=== PATIENT | female | born 2000 | race Caucasian/White ===

== ENCOUNTER 2022-06-08 07:05 | Day surgery (SDC) | payer SELFPAY, OTHER ==
[2022-06-08] VITALS (7 sets, daily range): BP systolic 108–121; BP diastolic 68–90; PULSE 76–94; RESP 12–18; TEMP 36.1–36.8; O2SAT 97–100; BMI 25.4
[2022-06-08] MEDS: Lactated Ringers 1,000 ML 15 ML IV (07:41)
[2022-06-08 07:43] LABS: Internal QC Validated? YES +Cl - CLEAR BKGD; Pregnancy, Urine Negative Negative
--- NOTE | 2022-06-08 07:43 | PCM.HP.BLA ---
History and Physical Intake Vital Signs ? 06/03/2312:53 Height 5 ft 5 in Weight: 155 lb BMI 25.7 Intake Visit Reasons:?ED f/u from [place], large ovarian cyst Chief Complaint: ed f/u ovarian cyst Senior Network Administrator Required: No Is patient in pain?: Yes Pain scale (1-10): 8 Allergies No Known Allergies Allergy (Unverified 06/03/22 13:56) Medications ibuprofen 800 mg tablet 800 mg PO Q6H 06/03/22 [History Confirmed 06/03/22] Is last menstrual period known: Yes Last Menstrual Period: 05/25/22 Patient : No : No PFSH Family History?(Updated 06/03/22 @ 13:58 by Therese Wilcox) Father Hypertension Diabetes Arthritis Social History?(Updated 06/03/22 @ 14:00 by Therese Wilcox) adopted:? No household members:? family number of children:? 0 current occupational status:? 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 Never smoker alcohol intake:? never seatbelt use:? always do you feel safe at home:? Yes HPI ED f/u from [place], large ovarian cyst Details: PAMELA GARCIA is a 21 year old who presents for new onset pelvic acute pain intermittently since tuesday, seen in ER and has 9 cm ovarian cyst with blood flow.? she has been taking ibuprofen since and pain in improved but still prsent.? she denies any bleeding or abnormal discharge and isn't sexually active Female Reproductive History Last Menstrual Period: 05/25/22 Menopausal Symptoms: No night sweats ROS Const Constitutional: Denies fatigue, night sweats, weight gain or weight loss ENT ENT: Reports system reviewed and no additional complaints, except as documented Cardio Card: Denies chest pain Resp Resp: Denies cough or dyspnea GI GI: Reports as per HPI; Denies abdominal pain, constipation, nausea or vomiting : Denies nipple discharge, urinary frequency, urinary incontinence, urinary hesitancy, urinary urgency, vaginal discharge, vaginal dryness, vaginal odor or vaginal pruritus Musc Musc: Denies arthralgias, back pain or muscle weakness Skin Skin/Breast: Denies alopecia, change in hair, dry skin, breast mass, breast pain, breast skin changes or nipple discharge Neuro Neuro: Reports system reviewed and no additional complaints, except as documented Psych Psych: Reports system reviewed and no additional complaints, except as documented Endo Endo: Denies cold intolerance, excessive sweating, heat intolerance or polydipsia Severiano/Lymph Hematologic/Lymphatic: Denies easy bleeding, Denies easy bruising and Denies lymphadenopathy Exam Const General: cooperative, healthy appearing, comfortable, no acute distress and well developed Orientation: alert [facility] Head: normal to inspection and normocephalic Ears: hearing grossly normal bilaterally and external ears normal Nose: external nose normal and nares normal Face and sinus: normal facial exam Neck Neck: normal visual inspection and no lymphadenopathy Thyroid: thyroid normal Chest Chest palpation & inspection: normal inspection of the chest Resp Effort & Inspection: normal respiratory effort Cardio Rate: regular rate GI Inspection: normal to inspection and non-distended Palpation: soft and no hepatosplenomegaly Musc Other: gross motor intact no deficits, full bilateral strength Skin General: no rashes or lesions noted Neuro General: patient alert, patient awake, moves all extremities and no focal motor deficits Motor: muscle tone normal throughout Extrem General: normal to inspection and no pedal edema Psych Appearance: grossly normal Mental Status: mental status grossly normal Affect: normal affect Speech and Movement: speech and movement normal Coding Level of Care Code No Charge Diagnoses Ovarian cyst? N83.209 Assessment and Plan Assessment and Plan (1) Ovarian cyst: ?Status:?Acute ?Comment: plan laparoscopic ovarian cystectomy possible oophorectomy Plan After discussing the patient's diagnosis and treatment plan options, patient wishes to proceed with surgical management.? I have discussed with the patient the risks, benefits, and alternatives of the procedure which include but are not limited to risks of anesthesia, bleeding, infection, possible damage to bowel, bladder, or surrounding vasculature which could lead to additional surgery to evaluate any complications.? Patient agrees to procedure and wishes to proceed.? ACOG/uptodate references given for additional information regarding procedure.? UPDATE- I have seen the patient and performed any clinically relevant updates to the history and physical exam. Hannah Simmons MD
[2022-06-08 07:49] LABS: Hematocrit 39.4 % (37-47); Hemoglobin 12.8 g/dL (12.0-15.0); Mean Corp Hgb Conc 32.5 g/dL (32-36); Mean Corpuscular Hgb 29.2 pg (27.0-32.0); Mean Corpuscular Volume 89.7 fL (81-99); Platelet Count 304 K/mm3 (150-450); RBC Distribution Width CV 11.7 % (11.6-14.6); RBC Distribution Width SD 38.5 fl (35.1-43.9); Red Blood Count 4.39 M/mm3 (4.2-5.4); White Blood Count 7.1 K/mm3 (4.4-11.0)
--- NOTE | 2022-06-08 09:30 | OV_PTH ---
PATIENT: PAMELA GARCIA [place] [facility] [id number] AGE/SX: ROOM: RE06/08/[address]: Dr. Hannah Simmons MD : 2000 BED: DIS: 06/08/2022 SPEC #: [id number] RECD: 06/08/22 12:17 STATUS: MICHAEL RESky #: [id number] LINDA: 06/08/22 09:[address]: Hannah Simmons DEPT: SURGICAL PATHOLOGY RECD BY: Rossi Worthington ENTERED: 06/08/22 12:59 SP TYPE: OVARY OTHR DR: Dr. Chris Mederos, Tissues: Left ovary Procedures: Surgery Specimen Level IV HEADER OPERATION: Laparoscopic unilateral ovarian cystectomy, laparoscopic salpingo-oophorectomy PRE-OP DIAGNOSIS: Ovarian cyst TISSUE SUBMITTED: Left ovarian cyst and fallopian tube MICROSCOPIC DIAGNOSIS Left ovarian cyst and fallopian tube, salpingo-oophorectomy: Ovarian cyst wall with hemorrhagic infarction. Fallopian tube with hemorrhagic infarction. AM:leslie 06/09/2022 COMMENT Case has been reviewed in consultation with Dr. Mejia who concurs with the above diagnosis. ZAHRA:TONA MICROSCOPIC DESCRIPTION Slides are reviewed. GROSS DESCRIPTION Received in fixative is one container labeled with the patient's name and designated left ovarian cyst and fallopian tube. The specimen consists of a fallopian tube and cyst wall in multiple pieces. The fallopian tube is congested and hemorrhagic and measures 10.0 cm in length and up to 1.0 cm in diameter. The fimbrial end is identified. Sections of the fallopian tube reveal congested and hemorrhagic cut surfaces. Pieces of cyst wall measure in aggregate 10.0 x 10.0 x 1.0 cm. The cyst wall is congested and hemorrhagic. Field Court Researcher sections are submitted in four cassettes as follows: 1 & 2 ? fallopian tube, 3 & 4 ? ovarian cyst wall. / TONA:leslie 06/08/2022 TC:5 CPT: 14065
--- NOTE | 2022-06-08 09:46 | PCM.OPRPT ---
Problems Associated Problem List Diagnoses (1) Ovarian cyst: Report of Operation Date of Procedure: 06/08/22 Pre-Operative Diagnosis: see problem list Post-Operative Diagnosis: same Surgery/Procedure Performed:: laparoscopic ovarian cystectomy left salpingectomy Description of Surgical Findings:: left ovarian cyst torsion x 3 with infarcted tube Surgeon: Hannah Simmons natural gas inspector: Megha Rizvi Type of Anesthesia: General and Local Special Medications: none Specimen's removed: left tube and ovarian cyst Drains: none Estimated Blood Loss (mL): 50 Fluids Replaced: crystalloid Description of Procedure: Patient was taken in the operating room and was placed under general anesthesia was prepped and draped in normal sterile fashion in the dorsal lithotomy position. Bladder was drained of clear urine and SCDs were on preoperatively. Uterus was sounded and a uterine manipulator was placed after dilating. Attention was then paid to the abdominal portion of the procedure and the umbilicus was elevated with towel clamps and injected with Marcaine and after a 12 mm incision was made and the Veress needle was entered into the abdomen confirmed to be intra-abdominal with a low opening pressure of less than 5 mmHg. Abdomen was insufflated with CO2 gas and a 12 mm optical trocar was placed under direct visualization. A right and left lower quadrant 5 mm ports were placed under direct visualization. Uterus was well visualized and the left ovary was noted to be significantly enlarged and some of the bowel was stuck over it with adhesions. These adhesions were taken down and left ovary and tube visualized and noted to be torsed. The left ovary and tube were lifted up and untorsed which were noted to be rotated 3 times. There was complete infarction of the left fallopian tube noted but the left ovary was noted to have return of blood flow in the part most proximal to the pelvic sidewall. The left fallopian tube was first removed using the LigaSure to transect across the base of the tube to the level of the utero-ovarian ligament and the infundibulum portion of the tube. The ovary was then opened and cystectomy performed by transecting across most of the part of the ovary that had the cyst that appeared to be infarcted. The main part of the ovary was confirmed to have blood flow with some areas of bleeding noted which were cauterized. Whiteness was seen confirming blood flow coming back to part of the ovary and therefore part of the ovary was left in situ as per patient and family wishes. Right ovary and tube were noted to be within normal limits. The specimen was removed through the umbilical port site through a bag. The fascial incision was closed using the Aneesh Harmon and an 0 Vicryl. Liver and upper abdomen were visualized notably within normal limits and no other gross abnormalities were seen in the abdomen. All instruments removed from the abdomen after gas was desufflated. Port sites were closed with 3-0 Monocryl Steri's and op sites were applied. All instruments removed from the vagina and patient was awoken and taken recovery in stable condition. Grafts/Implants Used: none Complications none Admit VTE Documentation VTE Present on Admission: No VTE Mechan Device Prophylaxis: SCD's Procedures Urinary/Genital [id number]: [id number] Laproscopic BS/O
--- NOTE | 2022-06-08 09:55 | DCINST_ITS ---
Discharge Instructions Diet Discharge Diet: No restrictions Activity Discharge Activity: Return to Normal Activity, May Drive (when pain free) and May Shower May resume sexual activity in: 1 week Weight Bearing Status: Full weight bearing Lifting Restrictions: 30 lbs for 2 weeks Dressing / Incision Call your doctor if your incision/area has: Continuous Slow Oozing, Sudden Increased Bleeding, Increased Pain/ Swelling, Increased Redness and Foul Smelling Discharge Call your doctor if you observe: Fever of 101 or Higher, Using more than 1 pad per hour, Shortness of breath, Chest pain and Uncontrolled pain Suture Line Care: Avoid Pulling/Pushing and Avoid Pinching/Bending Remove Dressing in: 1 week (if present) Cleanse incision/area with: Soap & Water and Keep Dressing Clean & Dry Follow Up Care Please Follow Up With: Hannah Simmons MD When: Call to make an appointment with your doctor for a postop visit in 2 weeks Test Results: Test results from this visit will be discussed in further detail at your follow- up appointment, if applicable. Discharge Plan Admission Attending Provider: Hannah Simmons Primary Care Provider: Chris Mederos Discharge Orders/Prescriptions Prescriptions: New oxycodone-acetaminophen [Percocet] 5-325 mg tablet 1 tab PO Q6H PRN (Reason: pain) 7 Days Qty: 20 0RF No Action ibuprofen 800 mg tablet 800 mg PO Q6H cyclobenzaprine 10 mg tablet 10 mg PO TID PRN (Reason: muscle spasm) Qty: 30 2RF Referrals / Follow Up: Chris Mederos DO [Primary Care Provider] - Disposition Disposition (needs filled in before D/C Order can be placed): Home, Self Care
[2022-06-08] MEDS: Bupivacaine 0.25% 30 ML Vial (10:15)
== END 2022-06-08 13:08 | disposition home or self-care (01) ==
LOC: SDC 07:13 → AC 07:13
PROVIDERS: PCP Family Medicine; Referring Provider Obstetrics & Gynecology; Visit Provider Obstetrics & Gynecology
PROC: (CPT 58720; principal; 2022-06-08 09:15)
DX: N83.202 Unspecified ovarian cyst, left side (principal); N83.8 Other noninflammatory disorders of ovary, fallopian tube and broad ligament
CPT/HCPCS: 58661; 00840; 81025; 85027; 86850; 86900; 86901; 88305; J7120; J0330; J2405